=== PATIENT | female | born 1985 | race Caucasian/White ===

== ENCOUNTER → 2019-09-24 | Outpatient (CLI) | payer OTHER, MEDICAID ==
[~2019-09-24] MED LIST: None at This Time
[2019-09-24 14:11] LABS: BASOPHILS # (AUTO) 0.01 x10^3/uL (0-0.1); BASOPHILS % (AUTO) 0 % (0-1); EOSINOPHILS # (AUTO) 0.16 x10^3/uL (0-0.4); EOSINOPHILS % (AUTO) 3 % (1-7); LYMPHOCYTES # (AUTO) 1.88 x10^3/uL (1-3.4); LYMPHOCYTES % (AUTO) 36 % (22-44); MD NO; MEAN CORPUSCULAR HEMOGLOBIN 24.1 pg (27.0-34.8); MEAN CORPUSCULAR HGB CONC 30.9 g/dL (32.4-35.8); MEAN CORPUSCULAR VOLUME 77.8 fL (80-100); MEAN PLATELET VOLUME 7.9 fL (7.4-10.4); MONOCYTES # (AUTO) 0.38 x10^3/uL (0.2-0.8); MONOCYTES % (AUTO) 7 % (2-9); NEUTROPHILS % (AUTO) 54 % (42-75); PLATELET COUNT 365 x10^3/uL (130-400); RED BLOOD COUNT 4.13 x10^6/uL (3.82-5.3); RED CELL DISTRIBUTION WIDTH 17.2 % (9.6-15.2)
[2019-09-24 14:22] LABS: ALBUMIN 3.9 g/dL (3.4-5.0); ANION GAP 7 mmol/L (5-15); CHLORIDE 108 mmol/L (98-107)
[2019-09-24 14:28] LABS: ALANINE AMINOTRANSFERASE 28 U/L (12-78); ALKALINE PHOSPHATASE 100 U/L (45-117); BILIRUBIN,TOTAL 0.3 mg/dL (0.2-1.0); CREATININE 0.95 mg/dL (0.55-1.02); TOTAL PROTEIN 7.9 g/dL (6.4-8.2)
== END | disposition home or self-care (01) ==
LOC: STAR 13:17
PROVIDERS: ATTEND Obstetrics & Gynecology
DX: Z30.2 Encounter for sterilization (principal)
CPT/HCPCS: 36415; 80053; 84702; 85025

== ENCOUNTER 2019-10-03 05:29 | Day surgery (SDC) | payer OTHER, MEDICAID ==
[~2019-10-03] VITALS: Ht 170.2 cm; Wt 110.0 kg
[2019-10-03] MEDS ORDERED: LACTATED RINGERS 1,000 ML IV SCH (06:03)
[2019-10-03 06:49] LABS: HCG UR SG 1.024 (1.003-1.030)
[2019-10-03] MEDS ORDERED: DIAZEPAM 5 MG TABLET PO ONE (07:00)
[2019-10-03] MEDS ORDERED: SCOPOLAMINE PATCH, 1.5MG PATCH.TD72 TD ONE (07:00)
[2019-10-03] MEDS ORDERED: ACETAMINOPHEN 500 MG TABLET PO ONE (07:00)
[2019-10-03] MEDS ORDERED: EPINEPHRINE 1 MG/ML, 1ML ONE (07:09)
[2019-10-03] MEDS ORDERED: BUPIVACAINE/PF 0.25% ONE (07:09)
[2019-10-03] MEDS ORDERED: FENTANYL PF 100 MCG/2ML ONE ×3 (07:23→08:42)
[2019-10-03] MEDS ORDERED: MIDAZOLAM 1 MG/ML, 2ML ONE (07:23)
[2019-10-03] MEDS ORDERED: LORazepam 2 MG/ML, 1ML IVPush PRN (08:00)
[2019-10-03] MEDS ORDERED: ONDANSETRON ODT 8 MG PO PRN (08:00)
[2019-10-03] MEDS ORDERED: HYDROmorphone 2 MG/ML, 1ML IVPush PRN (08:00)
[2019-10-03] MEDS ORDERED: ONDANSETRON 2MG/ML, 2ML IV PRN (08:00)
[2019-10-03] MEDS ORDERED: PROMETHAZINE 25 MG/ML, 1ML IV PRN (08:00)
[2019-10-03] MEDS ORDERED: OXYcodone 5 MG/5 ML ORAL.SOL UDC PO PRN (08:00)
[2019-10-03] MEDS ORDERED: PROMETHAZINE 25 MG SUPP PR PRN (08:00)
[2019-10-03] MEDS ORDERED: NEOSTIGMINE 1 MG/ML, 10ML ONE (08:08)
[2019-10-03] MEDS ORDERED: PROPOFOL 10 MG/ML, 20ML ONE (08:08)
[2019-10-03] MEDS ORDERED: SUCCINYLCHOLINE 20 MG/ML, 10ML ONE (08:08)
[2019-10-03] MEDS ORDERED: SUGAMMADEX 200 MG/2 ML IVPush ONE (08:08)
[2019-10-03] MEDS ORDERED: GLYCOPYRROLATE 0.2MG/1ML, 5ML ONE (08:08)
[2019-10-03] MEDS ORDERED: CEFAZOLIN 1,000 MG ONE (08:08)
[2019-10-03] MEDS ORDERED: DEXAMETHASONE 4 MG/ML, 1ML ONE (08:08)
[2019-10-03] MEDS ORDERED: ONDANSETRON 2MG/ML, 2ML ONE (08:08)
[2019-10-03] MEDS ORDERED: ROCURONIUM 10MG/ML,5ML ONE (08:08)
[2019-10-03] MEDS ORDERED: OXYcodone 5 MG/5 ML ORAL.SOL UDC ONE (08:43)
[2019-10-03] MEDS: FENTANYL PF 100 MCG/2ML IV PRN ×2 (08:47→08:54)
== END 2019-10-03 10:30 | disposition home or self-care (01) ==
LOC: OUT 05:29
PROVIDERS: ATTEND Obstetrics & Gynecology
DX: Z30.2 Encounter for sterilization (principal); N83.8 Other noninflammatory disorders of ovary, fallopian tube and broad ligament; F32.9 Major depressive disorder, single episode, unspecified; Z79.899 Other long term (current) drug therapy; Z83.3 Family history of diabetes mellitus; Z80.3 Family history of malignant neoplasm of breast
CPT/HCPCS: 36415; 58670; 81025; 86850; 86900; 88302; J0171; J0690; J1100; J2250; J2405; J2704; J3010; J3490; J7120; J2710; J0330